=== PATIENT | male | born 1990 ===

== ENCOUNTER 2024-11-02 09:29 | Outpatient (CLI) | payer BC | END 2024-11-02 09:30 | disposition home or self-care (01) | LOC: CSHULT 09:29 | PROVIDERS: ATTEND Nurse Practitioner Primary Care | DX: R19.4 Change in bowel habit (principal); R19.7 Diarrhea, unspecified; Z80.0 Family history of malignant neoplasm of digestive organs; R13.10 Dysphagia, unspecified; K21.9 Gastro-esophageal reflux disease without esophagitis; R14.0 Abdominal distension (gaseous); F10.10 Alcohol abuse, uncomplicated; R10.13 Epigastric pain; K76.0 Fatty (change of) liver, not elsewhere classified | CPT/HCPCS: 76700 ==